=== PATIENT | male | born 1985 | race Caucasian/White ===

== ENCOUNTER 2019-06-10 08:53 | Emergency (ER) | payer SELFPAY ==
[2019-06-10] MEDS ORDERED: cefTRIAXone 1 GM Vial IM ONE (09:09)
[2019-06-10] MEDS ORDERED: Lidocaine 1% PF 2 ML SDV INJECT ONE (09:10)
[2019-06-10] MEDS ORDERED: Lidocaine 1% 4 ML ONE (09:12)
--- NOTE | 2019-06-10 09:51 | EDM.PDOC ---
ED HPI GENERAL MEDICAL PROBLEM - General Chief Complaint: Lower Extremity Injury/Pain Stated Complaint: FOOT INFECTION Time Seen by Provider: 06/10/19 09:46 Source of Information: Reports: Patient - History of Present Illness INITIAL COMMENTS - FREE TEXT/NARRATIVE: HISTORY AND PHYSICAL: History of present illness: []A shunt presents with complaint of an infection of his right foot Does have what appears to be athlete's foot infection with secondary infection bacterial a wound culture was obtained involves all of the spaces between his toes and distal foot redness scant exudates and tenderness No fever nausea vomiting chills sweats Review of systems: As per history of present illness and below otherwise all systems reviewed and negative. Past medical history: As per history of present illness and as reviewed below otherwise noncontributory. Surgical history: As per history of present illness and as reviewed below otherwise noncontributory. Social history: No reported history of drug or alcohol abuse. Family history: As per history of present illness and as reviewed below otherwise noncontributory. Physical exam: HEENT: Atraumatic, normocephalic, pupils reactive, negative for conjunctival pallor or scleral icterus, mucous membranes moist, throat clear, neck supple, nontender, trachea midline. Lungs: Clear to auscultation, breath sounds equal bilaterally, chest nontender. Heart: S1S2, regular, negative for clicks, rubs, or JVD. Abdomen: Soft, nondistended, nontender. Negative for masses or hepatosplenomegaly. Negative for costovertebral tenderness. Pelvis: Stable nontender. Genitourinary: Deferred. Rectal: Deferred. Extremities: Atraumatic, negative for cords or calf pain. Neurovascular unremarkable. Neuro: Awake, alert, oriented. Cranial nerves II through XII unremarkable. Cerebellum unremarkable. Motor and sensory unremarkable throughout. Exam nonfocal. Diagnostics: [CBC Foot 2 views] Wound culture obtained Therapeutics: [1 g Rocephin IM Bactrim double strength #20 ] [id number] antifungal treatment epsom soaks 3 times a day air dry Follow-up podiatry Impression: [Cellulitis Fungal infection not ruled out] Definitive disposition and diagnosis as appropriate pending reevaluation and review of above. Left Foot Pain Score (Numeric/FACES): 4 - Related Data Allergies Allergy/AdvReac Type Severity Reaction Status Date / Time No Known Allergies Allergy Verified 06/10/19 09:06 Home Meds: Home Meds . [No Known Home Meds] 06/10/19 [History] Past Medical History - Past Health History Medical/Surgical History: Denies Medical/Surgical History - Past Surgical History GI Surgical History: Reports: Hernia, Abdominal, Hernia, Inguinal, Hernia Repair /Other Social & Family History - Family History Family Medical History: Noncontributory - Tobacco Use Smoking Status *Q: Never Smoker - Recreational Drug Use Recreational Drug Use: No Review of Systems - Review of Systems Review Of Systems: See Below ED EXAM, GENERAL - Physical Exam Exam: See Below Course - Vital Signs Last Recorded V/S: Last Vital Signs Temp 96.4 F 06/10/19 09:03 Pulse 93 06/10/19 09:03 Resp 18 06/10/19 09:03 BP 152/89 H 06/10/19 09:03 Pulse Ox 97 06/10/19 09:03 - Orders/Labs/Meds Orders: Active Orders 24 hr Category Date Time Status Foot 2V Lt [CR] Stat Exams 06/10/19 09:09 Taken CULTURE WOUND [RM] Stat Lab 06/10/19 09:05 Received Labs: Laboratory Tests 06/10/19 Range/Units 09:18 WBC 6.96 (4.0-11.0) K/uL RBC 5.29 (4.50-5.90) M/uL Hgb 15.3 (13.0-17.0) g/dL Hct 46.7 (38.0-50.0) % MCV 88.3 (80.0-98.0) fL MCH 28.9 (27.0-32.0) pg MCHC 32.8 (31.0-37.0) g/dL RDW Std Deviation 43.2 (28.0-62.0) fl RDW Coeff of Les 13 (11.0-15.0) % Plt Count 196 (150-400) K/uL MPV 10.60 (7.40-12.00) fL Neut % (Auto) 68.7 (48.0-80.0) % Lymph % (Auto) 24.3 (16.0-40.0) % [place] % (Auto) 4.7 (0.0-15.0) % Eos % (Auto) 2.2 (0.0-7.0) % Baso % (Auto) 0.1 (0.0-1.5) % Neut # (Auto) 4.8 (1.4-5.7) K/uL Lymph # (Auto) 1.7 (0.6-2.4) K/uL [place] # (Auto) 0.3 (0.0-0.8) K/uL Eos # (Auto) 0.2 (0.0-0.7) K/uL Baso # (Auto) 0.0 (0.0-0.1) K/uL Nucleated RBC % 0.0 /100WBC Nucleated RBCs # 0 K/uL Meds: Medications Discontinued Medications Generic Name Dose Route Start Last Admin Trade Name Nathaly PRN Reason Stop Dose Admin Ceftriaxone Sodium 1 gm 06/10/19 09:09 06/10/19 09:19 Rocephin IM 06/10/19 09:10 1 gm ONETIME ONE Administration Lidocaine HCl Confirm 06/10/19 09:12 06/10/19 09:20 Xylocaine-Mpf 1% Administered 06/10/19 09:13 Not Given Dose 4 mls @ as directed .ROUTE .STK-MED ONE Lidocaine HCl 2.1 ml 06/10/19 09:10 06/10/19 09:19 Xylocaine-Mpf 1% INJECT 06/10/19 09:11 2.1 ml ONETIME ONE Administration Departure - Departure Time of Disposition: 09:48 Disposition: Home, Self-Care 01 Condition: Good Clinical Impression: Cellulitis - Discharge Information Referrals: PCP,None [Primary Care Provider] - Additional Instructions: Education as prescribed Epsom salts soaks 3 times a day, are dry Underlying athlete's foot is not ruled out, a benefit from [id number] treatment with foot powder such as Desenex Clean socks and dry footwear, at home open to air Follow-up with podiatry, ER referral for podiatry for recheck in 48 hours [facility] - Podiatry [address] [place] [id number] The following information is given to patients seen in the emergency department who are being discharged to home. This information is to outline your options for follow-up care. We provide all patients seen in our emergency department with a follow-up referral. The need for follow-up, as well as the timing and circumstances, are variable depending upon the specifics of your emergency department visit. If you don't have a primary care physician on staff, we will provide you with a referral. We always advise you to contact your personal physician following an emergency department visit to inform them of the circumstance of the visit and for follow-up with them and/or the need for any referrals to a consulting specialist. The emergency department will also refer you to a specialist when appropriate. This referral assures that you have the opportunity for follow-up care with a specialist. All of these measure are taken in an effort to provide you with optimal care, which includes your follow-up. Under all circumstances we always encourage you to contact your private physician who remains a resource for coordinating your care. When calling for follow-up care, please make the office aware that this follow-up is from your recent emergency room visit. If for any reason you are refused follow-up, please contact the [facility] emergency department at and asked to speak to the emergency department charge nurse. - My Orders Last 24 Hours: My Active Orders 06/10/19 09:05 CULTURE WOUND [RM] Stat 06/10/19 09:09 Foot 2V Lt [CR] Stat - Assessment/Plan Last 24 Hours: My Active Orders 06/10/19 09:05 CULTURE WOUND [RM] Stat 06/10/19 09:09 Foot 2V Lt [CR] Stat
--- NOTE | 2019-06-10 09:53 | CR ---
INDICATION: Rash around toes COMPARISON: None. FINDINGS: AP and lateral views of the left foot demonstrate normal mineralization and alignment. There is no fracture dislocation. Small plantar calcaneal enthesophyte. Joint spaces are preserved. Soft tissues are unremarkable. - IMPRESSION: No acute osseous abnormality. Dictated by Dio Whitten MD @ 06/10/2019 9:51:18 AM Dictated by: Dio Whitten MD @ 06/10/2019 09:51:36 (Electronically Signed)
== END 2019-06-10 10:04 | disposition home or self-care (01) ==
LOC: MW.ED 08:53
DX: L03.116 Cellulitis of left lower limb (principal)
CPT/HCPCS: 36415; 73620; 85025; 87070; 87186; 96372; 99283; J0696; J2001; 87077